=== PATIENT | male | born 1980 | race Caucasian/White ===

== ENCOUNTER 2021-08-07 23:08 | Emergency (ER) | payer BC ==
[2021-08-07 23:56] LABS: HEMOGLOBIN 14.4 gm/dl (14.0-17.5); RED BLOOD COUNT 4.69 M/UL (4.20-5.50); WHITE BLOOD COUNT 11.8 K/UL (4.5-11.0)
[2021-08-08] MEDS ORDERED: ZOFRAN ODT 4 MG4 MG PO (01:23)
[2021-08-08] MEDS ORDERED: FLOMAX 0.4 MG0.4 MG PO (01:23)
[2021-08-08] MEDS ORDERED: LODINE CAP 300300 MG PO (01:23)
== END 2021-08-08 02:12 | disposition home or self-care (01) ==
LOC: ER1 23:08
PROVIDERS: Physician Assistant
DX: N13.2 Hydronephrosis with renal and ureteral calculous obstruction (principal)
CPT/HCPCS: 80053; 81001; 83690; 85025; 87086; 99284